=== PATIENT | male | born 1955 | race Caucasian/White ===

== ENCOUNTER 2017-12-20 15:58 | Emergency (ER) | payer MEDICAID ==
[~2017-12-20] VITALS: Ht 172.7 cm; Wt 117.9 kg
[2017-12-20 16:02] VITALS: BP_SYST 134
[2017-12-20 18:09] VITALS: BP_SYST 129
== END 2017-12-20 18:00 | disposition home or self-care (01) ==
LOC: SED 15:58
DX: L02.811 Cutaneous abscess of head [any part, except face] (principal); J45.909 Unspecified asthma, uncomplicated; E11.9 Type 2 diabetes mellitus without complications; I10 Essential (primary) hypertension
CPT/HCPCS: 99283

== ENCOUNTER 2017-12-24 17:30 | Emergency (ER) | payer MEDICAID ==
[~2017-12-24] VITALS: Ht 172.7 cm; Wt 117.9 kg
[2017-12-24 17:36] VITALS: BP_SYST 156
[2017-12-24 18:46] VITALS: BP_SYST 145
== END 2017-12-24 18:49 | disposition home or self-care (01) ==
LOC: SED 17:30
DX: Z48.01 Encounter for change or removal of surgical wound dressing (principal); J45.909 Unspecified asthma, uncomplicated; E11.9 Type 2 diabetes mellitus without complications; I10 Essential (primary) hypertension
CPT/HCPCS: 99283